=== PATIENT | female | born 1960 | race Asian ===

== ENCOUNTER 2018-11-04 13:57 | Inpatient (IN) | payer MEDICARE, MEDICAID ==
[~2018-11-04] VITALS: Ht 162.6 cm; Wt 50.0 kg
[2018-11-04 14:27] LABS: BASOPHILS # (AUTO) 0.05 x10^3/uL (0-0.1); BASOPHILS % (AUTO) 1 % (0-1); EOSINOPHILS # (AUTO) 0.11 x10^3/uL (0-0.4); EOSINOPHILS % (AUTO) 1 % (1-7); LYMPHOCYTES # (AUTO) 4.25 x10^3/uL (1-3.4); LYMPHOCYTES % (AUTO) 50 % (22-44); MD NO; MEAN CORPUSCULAR HEMOGLOBIN 30.3 pg (27.0-34.8); MEAN CORPUSCULAR VOLUME 91.8 fL (80-100); MEAN PLATELET VOLUME 7.8 fL (7.4-10.4); MONOCYTES # (AUTO) 0.59 x10^3/uL (0.2-0.8); MONOCYTES % (AUTO) 7 % (2-9); NEUTROPHILS # (AUTO) 3.53 x10^3/uL (1.8-6.8); NEUTROPHILS % (AUTO) 41 % (42-75); PLATELET COUNT 354 x10^3/uL (130-400); RED BLOOD COUNT 4.74 x10^6/uL (3.82-5.3); RED CELL DISTRIBUTION WIDTH 14.9 % (9.6-15.2)
[2018-11-04 14:34] LABS: ALANINE AMINOTRANSFERASE 57 U/L (12-78); ALBUMIN 4.4 g/dL (3.4-5.0); ANION GAP 8 mmol/L (5-15); CALCIUM 9.1 mg/dL (8.5-10.1); CHLORIDE 105 mmol/L (98-107); CREATININE 0.87 mg/dL (0.55-1.02)
[2018-11-04 14:36] LABS: ALKALINE PHOSPHATASE 95 U/L (45-117); BILIRUBIN,TOTAL 0.7 mg/dL (0.2-1.0); TOTAL PROTEIN 7.5 g/dL (6.4-8.2)
--- NOTE | 2018-11-04 15:03 | NUR ---
TASK RN: IV started for CT scan, call shin within reach.
[2018-11-04] MEDS ORDERED: OMNIPAQUE 350 MG/ML, 100ML BOTTLE ONE (16:00)
--- NOTE | 2018-11-04 16:05 | NUR ---
Resting in [facility]. No needs.
--- NOTE | 2018-11-04 16:35 | NUR ---
Patient up to the restroom to attempt to provide UA and stool sample again. Ambulatory with a steady gait.
[2018-11-04 17:03] LABS: MICROSCOPIC NOT IND
[2018-11-04 17:09] LABS: CULTURE INDICATED? NO
--- NOTE | 2018-11-04 17:09 | NUR ---
UA and stool sample sent. VSS.
[2018-11-04 18:17] LABS: CLOSTRIDIUM DIFFICILE ANTIGEN NEGATIVE; CLOSTRIDIUM DIFFICILE TOXIN NEGATIVE (Negative)
--- NOTE | 2018-11-04 18:22 | NUR ---
Resting in [facility]. No needs.
--- NOTE | 2018-11-04 19:49 | NUR ---
Report to ROBB Tejada.
[2018-11-04 20:07] VITALS: BP 134/91
[2018-11-04] MEDS ORDERED: LABETALOL 5MG/ML, 20ML IVPush PRN (21:00)
[2018-11-04] MEDS ORDERED: POLYETHYLENE GLYCOL 17 GM PACKET PO PRN (21:00)
[2018-11-04] MEDS ORDERED: POTASSIUM CHLORIDE 20 MEQ in SODIUM CHLORIDE 0.9% 250 ML IV ONE (21:00)
[2018-11-04] MEDS ORDERED: ENOXAPARIN 40 MG/0.4 ML SQ SCH (21:00)
[2018-11-04 21:28] LABS: INTERNATIONAL NORMALIZED RATIO 1.05 (0.93-1.1)
[2018-11-04] MEDS: D5%-0.45NACL+KCL 20MEQ 1,000 ML IV SCH (22:57)
[2018-11-04] MEDS: NICOTINE 7 MG/24 HR PATCH.TD24 TD SCH (22:58)
[2018-11-04] MEDS: OXYcodone IR 5MG TABLET PO PRN (22:59)
[2018-11-04] MEDS: FAMOTIDINE 20 MG TABLET PO SCH (22:59)
[2018-11-05] MEDS: OXYcodone IR 5MG TABLET PO PRN ×5 (00:18→20:55)
[2018-11-05 02:56] VITALS: BP 102/65
[2018-11-05 05:06] LABS: MEAN CORPUSCULAR HEMOGLOBIN 30.5 pg (27.0-34.8); MEAN CORPUSCULAR HGB CONC 33.4 g/dL (32.4-35.8); MEAN CORPUSCULAR VOLUME 91.3 fL (80-100); MEAN PLATELET VOLUME 7.9 fL (7.4-10.4); PLATELET COUNT 303 x10^3/uL (130-400); RED BLOOD COUNT 4.36 x10^6/uL (3.82-5.3); RED CELL DISTRIBUTION WIDTH 15.1 % (9.6-15.2)
[2018-11-05 05:17] LABS: CHLORIDE 112 mmol/L (98-107)
[2018-11-05 05:24] LABS: ALANINE AMINOTRANSFERASE 48 U/L (12-78); ALBUMIN 3.5 g/dL (3.4-5.0); ALKALINE PHOSPHATASE 74 U/L (45-117); ANION GAP 3 mmol/L (5-15); BILIRUBIN,TOTAL 0.6 mg/dL (0.2-1.0); CALCIUM 8.6 mg/dL (8.5-10.1); CREATININE 0.79 mg/dL (0.55-1.02); TOTAL PROTEIN 6.3 g/dL (6.4-8.2)
[2018-11-05 05:44] LABS: MD YES
[2018-11-05 05:46] LABS: <PLATELET ESTIMATE> ADEQUATE; <PLT MORPHOLOGY> NORMAL PLT MORPH; <RBC MORPHOLOGY> NORMAL; EOS#(MANUAL) 0.25 x10^3/uL (0.0-0.4); EOS% (MANUAL) 3 % (1-7); LYMPH#(MANUAL) 5.64 x10^3/uL (1-3.4); LYMPHS% (MANUAL) 68 % (22-44); MONOS#(MANUAL) 0.42 x10^3/uL (0.3-2.7); MONOS% (MANUAL) 5 % (2-9); REACTIVE LYMPHS # (MANUAL) 0.17 x10^3/uL (0-0); REACTIVE LYMPHS % (MANUAL) 2 % (0-0); SEG#(MANUAL) 1.83 x10^3/uL (1.8-6.8); SEGS% (MANUAL) 22 % (42-75)
[2018-11-05 06:29] LABS: OCCULT BLOOD NEGATIVE (NEGATIVE)
[2018-11-05 06:51] VITALS: BP 137/82
[2018-11-05] MEDS ORDERED: MOVIPREP POWDER 1 PREP KIT PO ONE (08:00)
[2018-11-05] MEDS: FAMOTIDINE 20 MG TABLET PO SCH ×2 (08:04→20:04)
[2018-11-05] MEDS: morphine SULFATE 10 MG/ML, 1ML IVPush PRN (08:20)
[2018-11-05] MEDS: D5%-0.45NACL+KCL 20MEQ 1,000 ML IV SCH ×2 (11:57→20:04)
[2018-11-05 15:42] VITALS: BP 127/61
[2018-11-05] MEDS: NICOTINE 7 MG/24 HR PATCH.TD24 TD SCH (16:36)
[2018-11-05 19:02] VITALS: BP 125/80
[2018-11-06 01:10] VITALS: BP 114/66
[2018-11-06] MEDS: D5%-0.45NACL+KCL 20MEQ 1,000 ML IV SCH ×2 (05:33→18:34)
[2018-11-06 06:40] VITALS: BP 155/96
[2018-11-06] MEDS: FAMOTIDINE 20 MG TABLET PO SCH ×2 (07:26→20:49)
[2018-11-06] MEDS ORDERED: OXYcodone 5 MG/5 ML ORAL.SOL UDC ONE (08:47)
[2018-11-06] MEDS ORDERED: KETOROLAC 30 MG/1 ML IV PRN (09:00)
[2018-11-06] MEDS ORDERED: OXYcodone 5 MG/5 ML ORAL.SOL UDC PO PRN (09:00)
[2018-11-06] MEDS ORDERED: HYDROmorphone 1 MG/ML, 1ML AMP IV PRN (09:00)
[2018-11-06] MEDS ORDERED: METOCLOPRAMIDE 5 MG/ML, 2ML IV PRN (09:00)
[2018-11-06] MEDS ORDERED: hydrALAzine 20 MG/ML, 1ML IV PRN (09:00)
[2018-11-06] MEDS ORDERED: FENTANYL PF 100 MCG/2ML IV PRN (09:00)
[2018-11-06] MEDS ORDERED: PROMETHAZINE 25 MG/ML, 1ML IV PRN (09:00)
[2018-11-06] MEDS ORDERED: ONDANSETRON 2MG/ML, 2ML IVPush PRN (09:00)
[2018-11-06] MEDS ORDERED: ALBUTEROL SULFATE 2.5 MG/3 ML NPPB PRN (09:00)
[2018-11-06] MEDS ORDERED: MEPERIDINE/PF 25MG/0.5ML IVPush PRN (09:00)
[2018-11-06] MEDS ORDERED: LABETALOL 5MG/ML, 20ML IV PRN (09:00)
[2018-11-06] MEDS: morphine SULFATE 10 MG/ML, 1ML IVPush PRN ×4 (11:03→20:49)
[2018-11-06 12:27] VITALS: BP 111/80
[2018-11-06] MEDS: NICOTINE 7 MG/24 HR PATCH.TD24 TD SCH (16:45)
[2018-11-06 19:35] VITALS: BP 112/71
[2018-11-07 00:11] VITALS: BP 143/72
[2018-11-07] MEDS: morphine SULFATE 10 MG/ML, 1ML IVPush PRN ×5 (01:53→22:49)
[2018-11-07] MEDS: D5%-0.45NACL+KCL 20MEQ 1,000 ML IV SCH ×2 (04:53→12:07)
[2018-11-07 06:29] VITALS: BP 153/82
[2018-11-07] MEDS ORDERED: FENTANYL PF 250 MCG/5ML ONE (07:22)
[2018-11-07] MEDS ORDERED: MIDAZOLAM 1 MG/ML, 2ML ONE (07:22)
[2018-11-07] MEDS ORDERED: LIDOCAINE 2%, 6 ML JEL.PF.APP MM ONE (07:24)
[2018-11-07] MEDS ORDERED: ALBUTEROL/IPRATROPIUM 2.5MG/0.5MG, 3 ML NPPB PRN (08:00)
[2018-11-07] MEDS ORDERED: ONDANSETRON 2MG/ML, 2ML IV PRN (08:00)
[2018-11-07] MEDS ORDERED: PROMETHAZINE 25 MG/ML, 1ML IV PRN (08:00)
[2018-11-07] MEDS ORDERED: MIDAZOLAM 1 MG/ML, 2ML IV PRN (08:00)
[2018-11-07] MEDS ORDERED: SCOPOLAMINE PATCH, 1.5MG PATCH.TD72 TD PRN (08:00)
[2018-11-07] MEDS ORDERED: MEPERIDINE/PF 25MG/0.5ML IVPush PRN (08:00)
[2018-11-07] MEDS ORDERED: GLYCOPYRROLATE 0.2MG/1ML, 5ML ONE (08:36)
[2018-11-07] MEDS ORDERED: NEOSTIGMINE 1 MG/ML, 10ML ONE (08:36)
[2018-11-07] MEDS ORDERED: DEXAMETHASONE 4 MG/ML, 1ML ONE (08:36)
[2018-11-07] MEDS ORDERED: ONDANSETRON 2MG/ML, 2ML ONE (08:36)
[2018-11-07] MEDS ORDERED: ROCURONIUM 10MG/ML,5ML ONE (08:36)
[2018-11-07] MEDS ORDERED: PROPOFOL 10 MG/ML, 20ML ONE (08:36)
[2018-11-07] MEDS ORDERED: HYDROmorphone 1 MG/ML, 1ML AMP ONE ×2 (08:56→09:40)
[2018-11-07] MEDS: FAMOTIDINE 20 MG TABLET PO SCH ×2 (09:00→19:35)
[2018-11-07] MEDS ORDERED: BUPIVACAINE/PF 0.25% ONE ×2 (09:05)
[2018-11-07] MEDS ORDERED: EPINEPHRINE 1 MG/ML, 1ML ONE (09:05)
[2018-11-07] MEDS ORDERED: FENTANYL PF 100 MCG/2ML ONE (09:07)
[2018-11-07] MEDS: FENTANYL PF 100 MCG/2ML IV PRN ×2 (09:08→09:14)
[2018-11-07] MEDS: HYDROmorphone 2 MG/ML, 1ML IVPush PRN ×3 (09:41→17:50)
[2018-11-07 10:38] VITALS: BP 123/79
[2018-11-07] MEDS: KETOROLAC 30 MG/1 ML IV PRN (11:35)
[2018-11-07 13:15] VITALS: BP 109/66
[2018-11-07] MEDS ORDERED: LORazepam 2 MG/ML, 1ML IVPush PRN (14:30)
[2018-11-07] MEDS: NICOTINE 7 MG/24 HR PATCH.TD24 TD SCH (15:44)
[2018-11-07] MEDS: ENOXAPARIN 40 MG/0.4 ML SQ SCH (15:45)
[2018-11-07] MEDS: CEFOTETAN PMX 1GM/50ML 50 ML IV SCH (15:46)
[2018-11-07] MEDS: POTASSIUM CHLORIDE 20 MEQ in LACTATED RINGERS 1,000 ML IV SCH (15:46)
[2018-11-07 20:30] VITALS: BP 103/64
[2018-11-08] MEDS: POTASSIUM CHLORIDE 20 MEQ in LACTATED RINGERS 1,000 ML IV SCH ×4 (01:01→22:27)
[2018-11-08 01:09] VITALS: BP 105/68
[2018-11-08] MEDS: HYDROmorphone 2 MG/ML, 1ML IVPush PRN ×4 (01:12→19:58)
[2018-11-08] MEDS: CEFOTETAN PMX 1GM/50ML 50 ML IV SCH (04:00)
[2018-11-08] MEDS: morphine SULFATE 10 MG/ML, 1ML IVPush PRN ×2 (04:00→11:15)
[2018-11-08 05:44] LABS: MEAN CORPUSCULAR HEMOGLOBIN 30.8 pg (27.0-34.8); MEAN CORPUSCULAR HGB CONC 33.6 g/dL (32.4-35.8); MEAN CORPUSCULAR VOLUME 91.5 fL (80-100); MEAN PLATELET VOLUME 8.9 fL (7.4-10.4); PLATELET COUNT 245 x10^3/uL (130-400); RED BLOOD COUNT 3.83 x10^6/uL (3.82-5.3); RED CELL DISTRIBUTION WIDTH 14.8 % (9.6-15.2)
[2018-11-08 05:51] LABS: CHLORIDE 108 mmol/L (98-107)
[2018-11-08 06:04] LABS: ALANINE AMINOTRANSFERASE 36 U/L (12-78); ALKALINE PHOSPHATASE 67 U/L (45-117); ANION GAP 6 mmol/L (5-15); BILIRUBIN,TOTAL 1.5 mg/dL (0.2-1.0); CALCIUM 8.3 mg/dL (8.5-10.1); CREATININE 0.85 mg/dL (0.55-1.02); TOTAL PROTEIN 5.5 g/dL (6.4-8.2)
[2018-11-08 06:11] LABS: MD YES
[2018-11-08 06:29] VITALS: BP 123/75
[2018-11-08 06:37] LABS: <PLATELET ESTIMATE> ADEQUATE; <PLT MORPHOLOGY> NORMAL PLT MORPH; <RBC MORPHOLOGY> NORMAL; BAND#(MANUAL) 1.09 x10^3/uL; BANDS%(MANUAL) 7 % (0-7); LYMPH#(MANUAL) 2.95 x10^3/uL (1-3.4); LYMPHS% (MANUAL) 19 % (22-44); MONOS#(MANUAL) 0.31 x10^3/uL (0.3-2.7); MONOS% (MANUAL) 2 % (2-9); SEGS% (MANUAL) 72 % (42-75)
[2018-11-08] MEDS: FAMOTIDINE 20 MG TABLET PO SCH ×2 (08:57→19:58)
[2018-11-08] MEDS: KETOROLAC 30 MG/1 ML IV PRN ×2 (13:45→22:45)
[2018-11-08 13:59] VITALS: BP 125/63
[2018-11-08] MEDS: NICOTINE 7 MG/24 HR PATCH.TD24 TD SCH (15:00)
[2018-11-08] MEDS: ENOXAPARIN 40 MG/0.4 ML SQ SCH (15:00)
[2018-11-08 19:01] VITALS: BP 144/88
[2018-11-09 03:10] VITALS: BP 138/82
[2018-11-09 04:37] LABS: BASOPHILS # (AUTO) 0.08 x10^3/uL (0-0.1); BASOPHILS % (AUTO) 1 % (0-1); EOSINOPHILS # (AUTO) 0.06 x10^3/uL (0-0.4); EOSINOPHILS % (AUTO) 1 % (1-7); LYMPHOCYTES # (AUTO) 2.69 x10^3/uL (1-3.4); LYMPHOCYTES % (AUTO) 24 % (22-44); MD NO; MEAN CORPUSCULAR HEMOGLOBIN 30.7 pg (27.0-34.8); MEAN CORPUSCULAR HGB CONC 33.3 g/dL (32.4-35.8); MEAN CORPUSCULAR VOLUME 91.9 fL (80-100); MEAN PLATELET VOLUME 8.4 fL (7.4-10.4); MONOCYTES # (AUTO) 0.49 x10^3/uL (0.2-0.8); MONOCYTES % (AUTO) 4 % (2-9); NEUTROPHILS # (AUTO) 7.85 x10^3/uL (1.8-6.8); NEUTROPHILS % (AUTO) 70 % (42-75); PLATELET COUNT 255 x10^3/uL (130-400); RED BLOOD COUNT 4.08 x10^6/uL (3.82-5.3); RED CELL DISTRIBUTION WIDTH 14.8 % (9.6-15.2)
[2018-11-09] MEDS: KETOROLAC 30 MG/1 ML IV PRN ×2 (04:38→10:35)
[2018-11-09 04:48] LABS: ALBUMIN 2.9 g/dL (3.4-5.0); ANION GAP 10 mmol/L (5-15); CALCIUM 8.5 mg/dL (8.5-10.1); CHLORIDE 107 mmol/L (98-107)
[2018-11-09 04:49] LABS: CREATININE 0.69 mg/dL (0.55-1.02)
[2018-11-09] MEDS: POTASSIUM CHLORIDE 20 MEQ in LACTATED RINGERS 1,000 ML IV SCH ×2 (06:14→17:00)
[2018-11-09 06:41] VITALS: BP 138/84
[2018-11-09] MEDS: FAMOTIDINE 20 MG TABLET PO SCH ×2 (08:07→22:23)
[2018-11-09] MEDS: morphine SULFATE 10 MG/ML, 1ML IVPush PRN ×3 (08:07→23:17)
[2018-11-09 14:00] VITALS: BP 122/59
[2018-11-09] MEDS: ENOXAPARIN 40 MG/0.4 ML SQ SCH (14:53)
[2018-11-09] MEDS: OXYcodone IR 5MG TABLET PO PRN ×2 (14:55→19:15)
[2018-11-09] MEDS: NICOTINE 7 MG/24 HR PATCH.TD24 TD SCH (14:57)
[2018-11-09 18:58] VITALS: BP 162/102
[2018-11-10] MEDS: POTASSIUM CHLORIDE 20 MEQ in LACTATED RINGERS 1,000 ML IV SCH (00:31)
[2018-11-10 01:50] VITALS: BP 144/71
[2018-11-10 04:38] LABS: BASOPHILS # (AUTO) 0.04 x10^3/uL (0-0.1); BASOPHILS % (AUTO) 0 % (0-1); EOSINOPHILS # (AUTO) 0.13 x10^3/uL (0-0.4); EOSINOPHILS % (AUTO) 1 % (1-7); LYMPHOCYTES # (AUTO) 2.41 x10^3/uL (1-3.4); LYMPHOCYTES % (AUTO) 21 % (22-44); MD NO; MEAN CORPUSCULAR HEMOGLOBIN 29.7 pg (27.0-34.8); MEAN CORPUSCULAR HGB CONC 32.7 g/dL (32.4-35.8); MEAN CORPUSCULAR VOLUME 90.8 fL (80-100); MEAN PLATELET VOLUME 8.4 fL (7.4-10.4); MONOCYTES # (AUTO) 0.66 x10^3/uL (0.2-0.8); MONOCYTES % (AUTO) 6 % (2-9); NEUTROPHILS # (AUTO) 8.49 x10^3/uL (1.8-6.8); NEUTROPHILS % (AUTO) 72 % (42-75); PLATELET COUNT 296 x10^3/uL (130-400); RED BLOOD COUNT 4.21 x10^6/uL (3.82-5.3); RED CELL DISTRIBUTION WIDTH 14.3 % (9.6-15.2)
[2018-11-10 04:50] LABS: ALANINE AMINOTRANSFERASE 45 U/L (12-78); ANION GAP 7 mmol/L (5-15); CALCIUM 8.5 mg/dL (8.5-10.1); CHLORIDE 102 mmol/L (98-107); CREATININE 0.55 mg/dL (0.55-1.02)
[2018-11-10 04:53] LABS: ALKALINE PHOSPHATASE 69 U/L (45-117); BILIRUBIN,TOTAL 1.6 mg/dL (0.2-1.0); TOTAL PROTEIN 5.9 g/dL (6.4-8.2)
[2018-11-10] MEDS: OXYcodone IR 5MG TABLET PO PRN ×2 (04:59→09:02)
[2018-11-10] MEDS ORDERED: MAGNESIUM SULFATE PMX 2GM/50ML 50 ML IV ONE (06:30)
[2018-11-10 07:00] VITALS: BP 154/97
[2018-11-10] MEDS: FAMOTIDINE 20 MG TABLET PO SCH ×2 (09:03→19:55)
[2018-11-10] MEDS: HYDROcodone/APAP 5/325 TABLET PO PRN ×3 (13:09→22:36)
[2018-11-10 15:11] VITALS: BP 118/77
[2018-11-10] MEDS: ENOXAPARIN 40 MG/0.4 ML SQ SCH (16:09)
[2018-11-10] MEDS: NICOTINE 7 MG/24 HR PATCH.TD24 TD SCH (16:10)
[2018-11-10 19:35] VITALS: BP 116/77
[2018-11-10] MEDS: morphine SULFATE 10 MG/ML, 1ML IVPush PRN (19:55)
[2018-11-11 01:46] VITALS: BP 118/76
[2018-11-11] MEDS: HYDROcodone/APAP 5/325 TABLET PO PRN ×4 (05:24→21:08)
[2018-11-11 06:57] VITALS: BP 114/70
[2018-11-11] MEDS: FAMOTIDINE 20 MG TABLET PO SCH ×2 (07:18→21:09)
[2018-11-11 13:12] VITALS: BP 121/74
[2018-11-11] MEDS: NICOTINE 7 MG/24 HR PATCH.TD24 TD SCH (14:54)
[2018-11-11] MEDS: ENOXAPARIN 40 MG/0.4 ML SQ SCH (14:54)
[2018-11-11 20:15] VITALS: BP 106/69
[2018-11-12] MEDS: HYDROcodone/APAP 5/325 TABLET PO PRN ×4 (01:14→19:41)
[2018-11-12 01:16] VITALS: BP 126/76
[2018-11-12] MEDS: ONDANSETRON 2MG/ML, 2ML IVPush PRN ×2 (05:36→16:47)
[2018-11-12 08:20] LABS: ALANINE AMINOTRANSFERASE 73 U/L (12-78); ALBUMIN 2.8 g/dL (3.4-5.0); ANION GAP 6 mmol/L (5-15); CALCIUM 8.1 mg/dL (8.5-10.1); CHLORIDE 97 mmol/L (98-107); CREATININE 0.61 mg/dL (0.55-1.02)
[2018-11-12 08:22] LABS: ALKALINE PHOSPHATASE 85 U/L (45-117); BILIRUBIN,TOTAL 1.1 mg/dL (0.2-1.0); TOTAL PROTEIN 5.8 g/dL (6.4-8.2)
[2018-11-12 08:35] LABS: BASOPHILS # (AUTO) 0.01 x10^3/uL (0-0.1); BASOPHILS % (AUTO) 0 % (0-1); EOSINOPHILS # (AUTO) 0.02 x10^3/uL (0-0.4); EOSINOPHILS % (AUTO) 0 % (1-7); LYMPHOCYTES # (AUTO) 1.36 x10^3/uL (1-3.4); LYMPHOCYTES % (AUTO) 11 % (22-44); MD NO; MEAN CORPUSCULAR HEMOGLOBIN 29.5 pg (27.0-34.8); MEAN CORPUSCULAR HGB CONC 32.7 g/dL (32.4-35.8); MEAN PLATELET VOLUME 8.3 fL (7.4-10.4); MONOCYTES # (AUTO) 1.19 x10^3/uL (0.2-0.8); MONOCYTES % (AUTO) 9 % (2-9); NEUTROPHILS # (AUTO) 10.44 x10^3/uL (1.8-6.8); NEUTROPHILS % (AUTO) 80 % (42-75); PLATELET COUNT 407 x10^3/uL (130-400); RED BLOOD COUNT 4.48 x10^6/uL (3.82-5.3); RED CELL DISTRIBUTION WIDTH 14.4 % (9.6-15.2)
[2018-11-12] MEDS: FAMOTIDINE 20 MG TABLET PO SCH ×2 (08:42→19:41)
[2018-11-12 08:58] VITALS: BP 96/60
[2018-11-12] MEDS ORDERED: SODIUM CHLORIDE 0.9% 1,000 ML IV SCH (10:30)
[2018-11-12 14:10] VITALS: BP 129/61
[2018-11-12] MEDS: ENOXAPARIN 40 MG/0.4 ML SQ SCH (15:07)
[2018-11-12] MEDS: NICOTINE 7 MG/24 HR PATCH.TD24 TD SCH (15:08)
[2018-11-12 15:26] VITALS: BP 101/63
[2018-11-12 19:59] VITALS: BP 104/65
[2018-11-13 01:19] VITALS: BP 99/66
[2018-11-13] MEDS: ONDANSETRON 2MG/ML, 2ML IVPush PRN (01:22)
[2018-11-13] MEDS: HYDROcodone/APAP 5/325 TABLET PO PRN ×5 (01:22→20:34)
[2018-11-13 07:31] LABS: MEAN CORPUSCULAR HEMOGLOBIN 29.5 pg (27.0-34.8); MEAN CORPUSCULAR HGB CONC 32.5 g/dL (32.4-35.8); MEAN CORPUSCULAR VOLUME 90.6 fL (80-100); MEAN PLATELET VOLUME 7.7 fL (7.4-10.4); PLATELET COUNT 427 x10^3/uL (130-400); RED BLOOD COUNT 4.17 x10^6/uL (3.82-5.3); RED CELL DISTRIBUTION WIDTH 14.5 % (9.6-15.2)
[2018-11-13 07:39] LABS: ALANINE AMINOTRANSFERASE 60 U/L (12-78); ALBUMIN 2.6 g/dL (3.4-5.0); ANION GAP 9 mmol/L (5-15); CALCIUM 8.1 mg/dL (8.5-10.1); CHLORIDE 101 mmol/L (98-107); CREATININE 0.52 mg/dL (0.55-1.02)
[2018-11-13 07:42] LABS: ALKALINE PHOSPHATASE 84 U/L (45-117); BILIRUBIN,TOTAL 0.9 mg/dL (0.2-1.0); TOTAL PROTEIN 5.5 g/dL (6.4-8.2)
[2018-11-13 07:45] VITALS: BP 92/55
[2018-11-13 07:56] LABS: MD YES
[2018-11-13 07:58] LABS: BAND#(MANUAL) 1.17 x10^3/uL; BANDS%(MANUAL) 8 % (0-7); LYMPH#(MANUAL) 2.34 x10^3/uL (1-3.4); LYMPHS% (MANUAL) 16 % (22-44); MONOS#(MANUAL) 1.61 x10^3/uL (0.3-2.7); MONOS% (MANUAL) 11 % (2-9); SEG#(MANUAL) 9.49 x10^3/uL (1.8-6.8); SEGS% (MANUAL) 65 % (42-75)
[2018-11-13 07:59] LABS: POLYCHROMASIA 1+
[2018-11-13 08:00] LABS: <PLATELET ESTIMATE> INCREASED; <PLT MORPHOLOGY> NORMAL PLT MORPH; OVALOCYTES 1+
[2018-11-13] MEDS: FAMOTIDINE 20 MG TABLET PO SCH ×2 (08:59→20:33)
[2018-11-13] MEDS ORDERED: OMNIPAQUE 350 MG/ML, 100ML BOTTLE ONE (10:58)
[2018-11-13 13:33] VITALS: BP 99/62
[2018-11-13] MEDS: NICOTINE 7 MG/24 HR PATCH.TD24 TD SCH (16:12)
[2018-11-13] MEDS: ENOXAPARIN 40 MG/0.4 ML SQ SCH (16:13)
[2018-11-13 20:18] VITALS: BP 94/57
[2018-11-14 02:54] VITALS: BP 107/70
[2018-11-14 04:45] LABS: MEAN CORPUSCULAR HEMOGLOBIN 30.3 pg (27.0-34.8); MEAN CORPUSCULAR HGB CONC 33.5 g/dL (32.4-35.8); MEAN CORPUSCULAR VOLUME 90.5 fL (80-100); MEAN PLATELET VOLUME 8.1 fL (7.4-10.4); PLATELET COUNT 489 x10^3/uL (130-400); RED BLOOD COUNT 4.03 x10^6/uL (3.82-5.3); RED CELL DISTRIBUTION WIDTH 14.8 % (9.6-15.2)
[2018-11-14 04:57] LABS: ALBUMIN 2.7 g/dL (3.4-5.0); ANION GAP 10 mmol/L (5-15); CALCIUM 8.4 mg/dL (8.5-10.1); CHLORIDE 103 mmol/L (98-107)
[2018-11-14 05:01] LABS: ALANINE AMINOTRANSFERASE 59 U/L (12-78); ALKALINE PHOSPHATASE 135 U/L (45-117); CREATININE 0.45 mg/dL (0.55-1.02)
[2018-11-14 06:24] LABS: BASOPHILS # (AUTO) 0.05 x10^3/uL (0-0.1); BASOPHILS % (AUTO) 0 % (0-1); EOSINOPHILS # (AUTO) 0.07 x10^3/uL (0-0.4); EOSINOPHILS % (AUTO) 1 % (1-7); LYMPHOCYTES # (AUTO) 2.58 x10^3/uL (1-3.4); LYMPHOCYTES % (AUTO) 17 % (22-44); MD SCAN; MONOCYTES # (AUTO) 1.61 x10^3/uL (0.2-0.8); MONOCYTES % (AUTO) 11 % (2-9); NEUTROPHILS # (AUTO) 10.95 x10^3/uL (1.8-6.8); NEUTROPHILS % (AUTO) 72 % (42-75)
[2018-11-14] MEDS ORDERED: CIPROFLOXACIN/PMX 400MG/200ML 200 ML IV SCH (06:30)
[2018-11-14] MEDS: HYDROcodone/APAP 5/325 TABLET PO PRN ×2 (06:34→10:40)
[2018-11-14 06:59] VITALS: BP 111/71
[2018-11-14] MEDS: FAMOTIDINE 20 MG TABLET PO SCH ×2 (09:00→20:25)
[2018-11-14] MEDS: METRONIDAZOLE PMX 500MG/100ML 100 ML IV SCH ×3 (09:10→22:42)
[2018-11-14] MEDS: CEFTRIAXONE PMX 1GM/50ML 50 ML IV SCH (10:29)
[2018-11-14] MEDS ORDERED: FENTANYL PF 100 MCG/2ML ONE (12:25)
[2018-11-14] MEDS ORDERED: MIDAZOLAM 1 MG/ML, 5ML ONE (12:25)
[2018-11-14] MEDS ORDERED: LIDOCAINE-MPF 1%, 5ML ONE ×2 (12:33)
[2018-11-14 13:42] VITALS: BP 92/59
[2018-11-14] MEDS: ENOXAPARIN 40 MG/0.4 ML SQ SCH (15:13)
[2018-11-14] MEDS: NICOTINE 7 MG/24 HR PATCH.TD24 TD SCH (15:13)
[2018-11-14] MEDS: morphine SULFATE 10 MG/ML, 1ML IVPush PRN ×2 (17:14→20:20)
[2018-11-14 20:15] VITALS: BP 106/90
[2018-11-15] MEDS: morphine SULFATE 10 MG/ML, 1ML IVPush PRN ×2 (00:27→09:33)
[2018-11-15 00:33] VITALS: BP 117/80
[2018-11-15 04:47] LABS: BASOPHILS # (AUTO) 0.06 x10^3/uL (0-0.1); BASOPHILS % (AUTO) 1 % (0-1); EOSINOPHILS # (AUTO) 0.05 x10^3/uL (0-0.4); EOSINOPHILS % (AUTO) 0 % (1-7); LYMPHOCYTES # (AUTO) 2.31 x10^3/uL (1-3.4); LYMPHOCYTES % (AUTO) 18 % (22-44); MD NO; MEAN CORPUSCULAR HEMOGLOBIN 30.3 pg (27.0-34.8); MEAN CORPUSCULAR HGB CONC 33.5 g/dL (32.4-35.8); MEAN CORPUSCULAR VOLUME 90.4 fL (80-100); MEAN PLATELET VOLUME 7.8 fL (7.4-10.4); MONOCYTES # (AUTO) 1.19 x10^3/uL (0.2-0.8); MONOCYTES % (AUTO) 9 % (2-9); NEUTROPHILS % (AUTO) 72 % (42-75); PLATELET COUNT 532 x10^3/uL (130-400); RED BLOOD COUNT 3.74 x10^6/uL (3.82-5.3); RED CELL DISTRIBUTION WIDTH 14.9 % (9.6-15.2)
[2018-11-15 04:55] LABS: CHLORIDE 104 mmol/L (98-107)
[2018-11-15 05:03] LABS: ALANINE AMINOTRANSFERASE 31 U/L (12-78); ALBUMIN 2.5 g/dL (3.4-5.0); ALKALINE PHOSPHATASE 121 U/L (45-117); ANION GAP 9 mmol/L (5-15); BILIRUBIN,TOTAL 0.9 mg/dL (0.2-1.0); CALCIUM 7.9 mg/dL (8.5-10.1); CREATININE 0.34 mg/dL (0.55-1.02); TOTAL PROTEIN 5.5 g/dL (6.4-8.2)
[2018-11-15] MEDS: HYDROcodone/APAP 5/325 TABLET PO PRN ×2 (05:13→15:35)
[2018-11-15] MEDS: METRONIDAZOLE PMX 500MG/100ML 100 ML IV SCH (06:05)
[2018-11-15 06:54] VITALS: BP 112/74
[2018-11-15] MEDS: CEFTRIAXONE PMX 1GM/50ML 50 ML IV SCH (09:27)
[2018-11-15] MEDS: FAMOTIDINE 20 MG TABLET PO SCH (09:27)
[2018-11-15 12:29] VITALS: BP 129/82
[2018-11-15] MEDS ORDERED: CEFD300C37 PO (12:31)
[2018-11-15] MEDS ORDERED: DOXY100C2 PO (12:31)
[2018-11-15] MEDS ORDERED: METR500T PO (12:31)
== END 2018-11-15 15:53 | disposition hospice, home (50) | DRG 329 ==
LOC: ED 17:13 → EDIP 18:59 → 3NW 20:08
PROVIDERS: ADMIT Family Medicine; ATTEND Family Medicine
PROC: 0DBN8ZX Excision of Sigmoid Colon, Via Natural or Artificial Opening Endoscopic, Diagnostic (ICD-10-PCS; 2018-11-06)
PROC: 0D1N0Z4 Bypass Sigmoid Colon to Cutaneous, Open Approach (ICD-10-PCS; 2018-11-07)
PROC: 0DBN0ZZ Excision of Sigmoid Colon, Open Approach (ICD-10-PCS; 2018-11-07)
PROC: 0DBP0ZZ Excision of Rectum, Open Approach (ICD-10-PCS; principal; 2018-11-07 07:30)
PROC: 0W9J30Z Drainage of Pelvic Cavity with Drainage Device, Percutaneous Approach (ICD-10-PCS; 2018-11-14)
DX: C20 Malignant neoplasm of rectum (principal); J18.9 Pneumonia, unspecified organism; K65.1 Peritoneal abscess; C78.7 Secondary malignant neoplasm of liver and intrahepatic bile duct; J44.0 Chronic obstructive pulmonary disease with (acute) lower respiratory infection; M46.28 Osteomyelitis of vertebra, sacral and sacrococcygeal region; C78.6 Secondary malignant neoplasm of retroperitoneum and peritoneum; K56.609 Unspecified intestinal obstruction, unspecified as to partial versus complete obstruction; F31.9 Bipolar disorder, unspecified; R53.81 Other malaise; K52.9 Noninfective gastroenteritis and colitis, unspecified; B18.2 Chronic viral hepatitis C; K63.5 Polyp of colon; F17.210 Nicotine dependence, cigarettes, uncomplicated; F90.9 Attention-deficit hyperactivity disorder, unspecified type; Z51.5 Encounter for palliative care; Z66 Do not resuscitate; Z80.3 Family history of malignant neoplasm of breast; Z98.51 Tubal ligation status; Z85.048 Personal history of other malignant neoplasm of rectum, rectosigmoid junction, and anus; Z86.010 Personal history of colon polyps
CPT/HCPCS: 36415; 49406; 71045; 74177; 75989; 80048; 80053; 81003; 82040; 82272; 83605; 83690; 83735; 84100; 84145; 85025; 85610; 85730; 87040; 87070; 87075; 87077; 87186; 87205; 87324; 88305; 88307; 89055; 99156; 99157; 99285; C1894; G0378; J0171; J0696; J0744; J1100; J1170; J1650; J1885; J2250; J2405; J2704; J2710; J3010; J3480; J3490; Q9967; C1729; C1769; J2270; J3475; J7030; J7050; J7120

== ENCOUNTER 2019-02-16 13:58 | Inpatient (IN) | payer MEDICAID, MEDICARE, OTHER ==
[~2019-02-16] VITALS: Ht 162.6 cm; Wt 43.0 kg
== END 2019-02-21 16:00 | disposition hospice, home (50) | DRG 947 ==
LOC: 3NW 19:42
PROVIDERS: ADMIT Internal Medicine; ATTEND Internal Medicine
DX: G89.3 Neoplasm related pain (acute) (chronic) (principal); E43 Unspecified severe protein-calorie malnutrition; C18.9 Malignant neoplasm of colon, unspecified; B18.2 Chronic viral hepatitis C; F17.200 Nicotine dependence, unspecified, uncomplicated; F31.9 Bipolar disorder, unspecified; F41.9 Anxiety disorder, unspecified; F90.9 Attention-deficit hyperactivity disorder, unspecified type; Z51.5 Encounter for palliative care; Z66 Do not resuscitate; Z80.3 Family history of malignant neoplasm of breast; Z86.010 Personal history of colon polyps; Z98.51 Tubal ligation status; Z88.0 Allergy status to penicillin
CPT/HCPCS: G0378; J1170; J1630; J2060; J7050

== ENCOUNTER → 2019-02-16 | Emergency (ER) | payer MEDICARE, MEDICAID ==
[~2019-02-16] MED LIST: CEFD300C37 PO; DOXY100C2 PO; METR500T PO
== END | disposition home or self-care (01) ==
LOC: ED 18:05 → 3NW 18:12 → ED 20:11
DX: Z02.9 Encounter for administrative examinations, unspecified (principal)